=== PATIENT | male | born 1995 | race Two or more races ===

== ENCOUNTER 2017-10-23 12:56 | Emergency (ER) | payer BC ==
[2017-10-23] VITALS (7 sets, daily range): BP systolic 90–124; BP diastolic 52–71
[~2017-10-23] VITALS: Ht 177.8 cm; Wt 124.7 kg
[2017-10-23 13:41] LABS: BASOPHILS % (AUTO) 1.2 % (0.0-2.0); EOSINOPHILS % (AUTO) 1.8 % (0.0-3.0); LYMPHOCYTES % (AUTO) 37.1 % (20.0-45.0); MEAN CORPUSCULAR VOLUME 92 FL (80-99); MONOCYTES % (AUTO) 8.6 % (1.0-10.0); NEUTROPHILS % (AUTO) 51.3 % (45.0-75.0); PLATELET COUNT 195 K/UL (150-450); RED BLOOD COUNT 5.33 M/UL (4.70-6.10); RED CELL DISTRIBUTION WIDTH 11.8 % (11.6-14.8); WHITE BLOOD COUNT 6.7 K/UL (4.8-10.8)
[2017-10-23] MEDS ORDERED: Ketorolac 30mg Inj IV ONE (13:45)
[2017-10-23] MEDS ORDERED: Albuterol/Ipratropium 3ml neb HHN ONE (13:45)
[2017-10-23 13:55] LABS: ANION GAP 6 mmol/L (5-15); BLOOD UREA NITROGEN 10 mg/dL (7-18); CALCIUM 9.1 MG/DL (8.5-10.1); CARBON DIOXIDE 29 MMOL/L (21-32); CHLORIDE 104 MMOL/L (98-107); CREATININE 0.9 MG/DL (0.55-1.30); POTASSIUM 4.1 MMOL/L (3.5-5.1); SODIUM 139 MMOL/L (136-145)
[2017-10-23 14:08] LABS: ALANINE AMINOTRANSFERASE 38 U/L (12-78); ALBUMIN 3.7 G/DL (3.4-5.0); ALBUMIN/GLOBULIN RATIO 1.1 (1.0-2.7); ALKALINE PHOSPHATASE 99 U/L (46-116); ASPARTATE AMINO TRANSFERASE 20 U/L (15-37); BILIRUBIN,TOTAL 0.5 MG/DL (0.2-1.0); CREATINE KINASE 177 U/L (26-308)
--- NOTE | 2017-10-23 14:27 | Emergency Room Report ---
History of Present Illness General Chief Complaint: Chest Pain Source: Patient Present Illness HPI Patient is a 22-year-old male presented after increased chest pain. The patient was having pleuritic type pain. This is an onset approximately 2 hours prior to arrival. Patient had not been vomiting. He denies any positional changes in the pain. He denies any pain with exertion. Allergies: Coded Allergies: No Known Allergies (Unverified , 10/23/17) Patient History Reviewed Nursing Documentation: PMH: Agreed, PSxH: Agreed Nursing Documentation-PMH Past Medical History: No Stated History Review of Systems All Other Systems: negative except mentioned in HPI Physical Exam Vital Signs Date Time Temp Pulse Resp B/P (MAP) Pulse Ox O2 Delivery O2 Flow Rate FiO2 10/23/17 13:05 97.7 72 18 125/73 97 Room Air 97.7 10/23/17 13:52 21 Sp02 EP Interpretation: reviewed, normal General Appearance: normal inspection, well appearing, no apparent distress, alert, GCS 15, non-toxic Head: atraumatic ENT: normal ENT inspection, hearing grossly normal, normal voice Neck: normal inspection, full range of motion, supple, no bony tend Respiratory: normal inspection, lungs clear, normal breath sounds, no respiratory distress, no retraction, no wheezing Cardiovascular #1: regular rate, rhythm, no edema Gastrointestinal: normal inspection, normal bowel sounds, non tender, soft, no guarding, no hernia Genitourinary: no CVA tenderness Musculoskeletal: normal inspection, back normal, normal range of motion Neurologic: normal inspection, alert, oriented x3, responsive, integration assistant III-XII nml as tested, speech normal Psychiatric: normal inspection, judgement/insight normal, mood/affect normal Skin: normal inspection, normal color, no rash Medical Decision Making Diagnostic Impression: Primary Impression: Pancreatitis, acute ER Course Patient was sent for chest pain.Differential diagnosis included but was not limited to acute coronary syndrome, pulmonary embolism, pneumonia, aortic dissection, shingles, pneumothorax, aortic dissection, esophageal rupture, pericarditis. Because of complexity of patient's case laboratory testing and imaging studies were ordered.Laboratory studies was notable for a markedly elevated lipase consistent with pancreatitis. Patient denies recent alcohol use. The patient was started on IV fluids. The patient noted have elevated lipase is normal white count and normal liver function tests. The patient was endorsed to Dr. [place] for final dispositon. I anticipate patient will be hospitalized for further evaluation of pancreatitis. Labs Test 10/23/17 13:25 10/23/17 13:40 White Blood Count 6.7 K/UL (4.8-10.8) Red Blood Count 5.33 M/UL (4.70-6.10) Hemoglobin 17.0 G/DL (14.2-18.0) Hematocrit 49.0 % (42.0-52.0) Mean Corpuscular Volume 92 FL (80-99) Mean Corpuscular Hemoglobin 32.0 PG (27.0-31.0) Mean Corpuscular Hemoglobin Concent 34.8 G/DL (32.0-36.0) Red Cell Distribution Width 11.8 % (11.6-14.8) Platelet Count 195 K/UL (150-450) Mean Platelet Volume 10.1 FL (6.5-10.1) Neutrophils (%) (Auto) 51.3 % (45.0-75.0) Lymphocytes (%) (Auto) 37.1 % (20.0-45.0) Monocytes (%) (Auto) 8.6 % (1.0-10.0) Eosinophils (%) (Auto) 1.8 % (0.0-3.0) Basophils (%) (Auto) 1.2 % (0.0-2.0) D-Dimer 0.19 mg/L FEU (0.00-0.49) Sodium Level 139 MMOL/L (136-145) Potassium Level 4.1 MMOL/L (3.5-5.1) Chloride Level 104 MMOL/L (98-107) Carbon Dioxide Level 29 MMOL/L (21-32) Anion Gap 6 mmol/L (5-15) Blood Urea Nitrogen 10 mg/dL (7-18) Creatinine 0.9 MG/DL (0.55-1.30) Estimat Glomerular Filtration Rate > 60 mL/min (>60) Glucose Level 94 MG/DL (74-106) Calcium Level 9.1 MG/DL (8.5-10.1) Total Bilirubin 0.5 MG/DL (0.2-1.0) Aspartate Amino Transf (AST/SGOT) 20 U/L (15-37) Alanine Aminotransferase (ALT/SGPT) 38 U/L (12-78) Alkaline Phosphatase 99 U/L (46-116) Total Creatine Kinase 177 U/L (26-308) Creatine Kinase MB 3.0 NG/ML (0.0-3.6) Creatine Kinase MB Relative Index 1.6 Troponin I 0.000 ng/mL (0.000-0.056) Total Protein 7.2 G/DL (6.4-8.2) Albumin 3.7 G/DL (3.4-5.0) Globulin 3.5 g/dL Albumin/Globulin Ratio 1.1 (1.0-2.7) Lipase 1260 U/L (73-393) Urine Opiates Screen Negative (NEGATIVE) Urine Barbiturates Screen Negative (NEGATIVE) Phencyclidine (PCP) Screen Negative (NEGATIVE) Urine Amphetamines Screen Negative (NEGATIVE) Urine Benzodiazepines Screen Negative (NEGATIVE) Urine Cocaine Screen Negative (NEGATIVE) Urine Marijuana (THC) Screen Negative (NEGATIVE) EKG Diagnostic Results Rate: normal Rhythm: NSR ST Segments: no acute changes ASA given to the pt in ED: No Rhythm Strip Diag. Results EP Interpretation: yes Rhythm: NSR, no PVC's, no ectopy Last Vital Signs Date Time Temp Pulse Resp B/P (MAP) Pulse Ox O2 Delivery O2 Flow Rate FiO2 10/23/17 14:01 76 20 100 Room Air 21 10/23/17 13:43 97.9 10/23/17 13:15 124/65 Status: unchanged Disposition: ADMITTED INPATIENT Condition: Bubba Mackenzie Oct 23, 2017 14:27
--- NOTE | 2017-10-24 08:29 | Diagnostic Imaging Report ---
Indication: Reason For Exam: SOB Technique: One view of the chest Comparison: none Findings: Lungs and pleural spaces are clear. Heart size is normal Impression: No acute process
--- NOTE | 2017-10-25 08:36 | Cardiology Report ---
APPROVED REPORT EKG Measurement Heart [id number] PA [id number] Normal sinus rhythm Left anterior fascicular block Abnormal ECG
--- NOTE | 2017-10-26 11:49 | Discharge Summary ---
Discharge Summary Hospital Course Date of Admission Oct 23, 2017 at 17:05 Date of Discharge Oct 23, 2017 at 19:00 Admitting Diagnosis PANCREATITIS HPI Behzad Vuong is a 22 year old male who was admitted on Oct 23, 2017 at 17:05 for Pancreatitis Hospital Course dc summary #[id number] Discharge Condition Upon Discharge: stable Discharge Disposition Patient was transferred to [facility] as per insurance plan Discharge Diagnoses: Discharge Instructions Discharge Instructions Special Instructions I have been assigned to complete a D/C Summary on this account. I was not involved in the patient management Keely Ruiz NP ([place]) Oct 26, 2017 11:49
--- NOTE | 2017-10-27 03:00 | Discharge Summary 2 SIG ---
DATE OF ADMISSION: 10/23/2017 DATE OF DISCHARGE: 10/23/2017 REASON FOR ADMISSION: This is a 22-year-old male, presented to emergency department with complaint of pleuritic type chest pain started about two hours prior to presentation. No pain with exertion. Vital signs were stable. No leukocytosis. Stable hemoglobin and hematocrit. Stable electrolytes. Troponin negative. D-dimer within normal limits. EKG revealed no acute ischemic changes. Urine tox screen was negative. Lipase was elevated -1260 with normal LFTs. Chest x-ray revealed no acute cardiopulmonary pathology. The patient was admitted with acute pancreatitis. HOSPITAL COURSE: During the patient's stay in the emergency department, transfer was arranged to [facility] as per insurance plan. The patient denied recent alcohol use. The patient was started on the IV fluids. The patient was transferred to [facility] for further management. DISCHARGE DIAGNOSIS: Acute pancreatitis. DISCHARGE MEDICATIONS: List of medications given in ED was sent to admitting facility. DISCHARGE INSTRUCTIONS: The patient was transferred to [facility] as per insurance plan. The patient to follow up with medical doctor at the accepting facility. Saeed Conrad M.D. I have been assigned to dictate discharge summary on this account and I was not involved in the patient's management. Keely Santoyoda N.PMarvel DR: Sterling JOB#: [id number] CC: [id number]
== END 2017-10-23 19:40 | disposition short-term general hospital (02) ==
LOC: EMR 13:55 → 4E 17:05 → UNDOADMIN 17:05 → EDBEDREQ 17:33 → UNDODISIN 19:00 → 4E 19:40
DX: K85.90 Acute pancreatitis without necrosis or infection, unspecified (principal); I44.4 Left anterior fascicular block
CPT/HCPCS: 36415; 71045; 80053; 80307; 82550; 82553; 83690; 84484; 85025; 85379; 93005; 94640; 94664; 96374; 99285; J1885; J7620